=== PATIENT | male | born 1960 | race African-American/Black ===

== ENCOUNTER 2016-05-16 11:37 | Inpatient (IN) | payer BC ==
[2016-05-03 16:44] LABS: WBC (NOT ORDERED) (RFLEX) 0 (0-5)
[2016-05-03 16:57] LABS: BASOPHILS 0.3 %; BASOPHILS ABSOLUTE 0.02 10/3/uL (0.0-0.16); EOSINOPHILS 1.3 %; EOSINOPHILS ABSOLUTE 0.08 10/3/uL (0.0-0.53); HEMATOCRIT 40.6 % (40.0-51.0); HEMOGLOBIN 13.9 g/dL (13.6-17.8); IMMATURE GRANULOCYTES 0.2 %; IMMATURE GRANULOCYTES ABSOLUTE 0.01 10/3/uL (0.0-0.11); LYMPHOCYTES 29.8 %; LYMPHOCYTES ABSOLUTE 1.83 10/3/uL (0.67-4.30); MEAN CORPUS HGB CONC 34.2 g/dL (32.0-36.0); MEAN CORPUSCULAR HEMOGLOB 30.5 pg (26.0-34.0); MEAN PLATELET VOLUME 10.8 fL (9.2-13.0); MONOCYTES 9.1 %; MONOCYTES ABSOLUTE 0.56 10/3/uL (0.21-1.20); NEUTROPHILS 59.3 %; NEUTROPHILS ABSOLUTE 3.64 10/3/uL (2.02-8.40); PLATELET COUNT 217 10/3/uL (150-400); RBC DISTRIBUTION WIDTH 14.3 % (12.0-16.0); RED CELL COUNT 4.56 10/6/uL (4.7-6.1); WHITE BLOOD CELLS 6.1 10/3/uL (4.5-10.5)
[2016-05-03 16:58] LABS: MANUAL DIFF NO %
[2016-05-03 17:05] LABS: INTERNATIONAL NORMAL RATI 1.1 UNITS (-)
[2016-05-03 17:07] LABS: A/G RATIO 0.7 (0.7-1.9); ALBUMIN 3.7 G/DL (3.5-5.0); ALKALINE PHOSPHATASE 114 U/L (45-117); BUN (BLOOD UREA NITROGEN) 20 MG/DL (6-23); CALCIUM, SERUM 9.4 MG/DL (8.5-10.4); CHLORIDE, SERUM 100 MMOL/L (96-112); CO2 (CARBON DIOXIDE) 28 MMOL/L (24-34); GFR AFRICAN AMERICAN 78 ML/MIN (>=60); GFR NON AFRICAN AMERICAN 68 ML/MIN (>=60); GLOBULIN 5.3 G/DL (2.5-4.1); GLUCOSE, SERUM 143 MG/DL (60-99); POTASSIUM, SERUM 3.6 MMOL/L (3.5-5.3); SGOT(AST) 91 U/L (5-40); SGPT(ALT) 60 U/L (5-65); SODIUM, SERUM 139 MMOL/L (135-148); TOTAL BILIRUBIN 0.8 MG/DL (0-1.2)
[2016-05-03 18:06] LABS: ASCORBIC ACID (UR NOT ORDER) NEG (NEG); BILIRUBIN, URINE SMALL (NEG); KETONE, URINE TRACE MG/DL (NEG); LEUKOCYTE ESTERASE(NOT OR NEG (NEG)
--- NOTE | ~2016-05-16 | OP ---
Record Of Operation [facility] [address] [place]. [address] NAME: FRESH,NONE : 60 STATUS : ADM IN PAT#: [id number] AGE: 55 ADM/REG DATE : 05/16/16 MR#: [id number] REPORT SERV DATE: 05/17/16 DICTATED BY: CHEMA SWAN DATE: 05/16/16 REPORT STATUS : Draft TRANSCRIBED BY: MODEdi DATE: 05/16/16 DATE OF PROCEDURE: 05/16/2016 PREOPERATIVE DIAGNOSIS: Severe right knee degenerative joint disease with severe subchondral cyst formation and bone damage. POSTOPERATIVE DIAGNOSIS: Severe right knee degenerative joint disease with severe subchondral cyst formation and bone damage. OPERATION: Right posterior stabilized total knee replacement, cemented with tibial stem augmentation. SIDE: Right. SIZE: See chart. ANESTHESIA: See chart. ESTIMATED BLOOD LOSS: Trace. TOURNIQUET TIME: Approximately 1 hour and 10 minutes. COMPLICATIONS: None. SPECIMENS: Articular surfaces. PROCEDURE: The patient was appropriately identified and marked. The operative side agreed with the consent form and it was checked by all members of the surgical team. The patient was taken to the operating room and anesthesia was induced per the anesthesiologist. The patient was carefully transferred to the operating table without incident. The patient received appropriate prophylactic antibiotics and a Yanez catheter was placed in the standard sterile technique. The patient was then carefully positioned, padded, prepped and draped in the normal sterile fashion. The operative leg had been appropriately identified and checked by all members of the operating team against the consent form and found to be the correct limb. The patient's lower extremity was then exsanguinated with an Pranay wrap and a tourniquet was inflated to 350 mm/Hg. Sharp dissection was carried out through a straight midline longitudinal incision and electrocautery through the fat. Sharp quad splitting approach was carried out between about the medial 10 percent of the tendon and the lateral 90 percent of the tendon and down around the medial aspect of the patella and then 1 cm medial to the tibial tubercle. The patella was carefully everted and the posterior fat pad was excised and gentle MCL elevation was carried out off the proximal medial tibia subperiosteally. IM guide was placed in the distal femur after using the appropriate drill. The distal femoral cutting guide was held with 2 pins and the distal cut made. Meniscal fragments and the ACL and the PCL were excised with electrocautery, carefully staying anterior to the posterior fat pad. The proximal tibial alignment guide Record Of Operation [facility] [address] [place]. [address] NAME: FRESH,NONE : 60 STATUS : ADM IN PAT#: [id number] AGE: 55 ADM/REG DATE : 05/16/16 MR#: [id number] REPORT SERV DATE: 05/17/16 DICTATED BY: CHEMA SWAN DATE: 05/16/16 REPORT STATUS : Draft TRANSCRIBED BY: STANLEY DATE: 05/16/16 was set appropriately and the proximal tibial cut made. Spacer block verified full extension with excellent mediolateral balance. Sizing guide was used to place 2 drill holes in the distal femur and the four-in-one cutting block was then placed, impacted and checked to be sure it would not notch with an vanessa wing and it was held with 2 pins. The anterior cut, posterior cut, anterior chamfer and posterior chamfer cuts were made. The pins were removed and the block was removed. A posterior release was carried out with a curved 3/4 inch osteotome staying right on the bone posteriorly. The box-cut guide was then placed, impacted and held with 2 pins and a reciprocating saw was used to cut out the box. With the trial components in place, there was excellent medial/lateral balance. The patella was then measured with a caliper, cut first with an oscillating saw and then reamed with a patella reamer. With the trial patella in place, there was excellent patellar tracking. Rotation was marked on the tibia and the tibia prepared with a drill and stamp chisel. All surfaces were then copiously irrigated with pulsatile lavage, carefully dried and then vacuum-mixed cement was pressurized with a cement gun in a doughy phase. The tibial component was placed, impacted and excess cement was removed. The cement was then pressurized in the femur and placed on the posterior runners of the femoral component, which was placed, impacted and excess cement removed and the knee was brought out into extension on a trial spacer. The cement was then pressurized in the patella. Patellar component was then placed, clamped and excess cement was removed. Once all cement was hardened, the knee was taken through range of motion. Further extruded cement was removed with a small osteotome. Then based on the trial inserts, we decided on the actual insert, which was placed in the standard fashion and held with a locking mechanism. The knee was then copiously irrigated and then closed in a layered fashion over a medium Hemovac drain superolaterally with interrupted #1 in the deep fascia, 2-0 subcutaneous and manan in the skin. The wounds were dressed sterilely and the tourniquet was deflated. The patient was then awakened and taken to the postanesthesia care unit without incident. All counts were correct at the end of the case. ADDENDUM: His bone loss was so severe that I opted for a long stem augmentation on the tibia, so everything is as described above with the exception of that I reamed his the tibia up to 20 and used a 20 x 150 mm stem augmentation on the tibia because of the severe metaphyseal loss, which we filled with additional cement. WTB/MODL Gaurav Swan M.D. / [id number] CC: Gaurav Swan M.D.
[~2016-05-16 11:37] MED LIST: ALEVE220 MG PO; CLEOCIN300 MG PO; NORV10 PO
[2016-05-17 06:06] LABS: HEMOGLOBIN 11.4 g/dL (13.6-17.8)
[2016-05-17 06:13] LABS: INTERNATIONAL NORMAL RATI 1.2 UNITS (-); PROTIME (NOT ORD) 15.5 SEC (12.0-14.5)
[2016-05-17 06:19] LABS: BUN (BLOOD UREA NITROGEN) 20 MG/DL (6-23); CALCIUM, SERUM 8.6 MG/DL (8.5-10.4); CHLORIDE, SERUM 101 MMOL/L (96-112); CO2 (CARBON DIOXIDE) 26 MMOL/L (24-34); CREATININE 1.19 MG/DL (0.70-1.30); GFR AFRICAN AMERICAN 79 ML/MIN (>=60); GFR NON AFRICAN AMERICAN 68 ML/MIN (>=60); POTASSIUM, SERUM 4.1 MMOL/L (3.5-5.3); SODIUM, SERUM 138 MMOL/L (135-148)
[2016-05-17 06:25] LABS: GLUCOSE, SERUM 222 MG/DL (60-99)
[2016-05-18 05:08] LABS: HEMATOCRIT 31.7 % (40.0-51.0); HEMOGLOBIN 10.5 g/dL (13.6-17.8)
[2016-05-18 05:14] LABS: INTERNATIONAL NORMAL RATI 1.3 UNITS (-); PROTIME (NOT ORD) 15.6 SEC (12.0-14.5)
[2016-05-18] MEDS ORDERED: OXYCOD PO (10:53)
[2016-05-18] MEDS ORDERED: C5 PO (10:53)
== END 2016-05-18 13:27 | disposition home or self-care (01) | DRG 470 ==
LOC: SDC/OF 11:37 → PACU 16:39 → 3JRC 18:47
PROVIDERS: Specialist
PROC: 3E0T3CZ (ICD-10-PCS; 2016-05-16)
PROC: 0SRC0J9 Replacement of Right Knee Joint with Synthetic Substitute, Cemented, Open Approach (ICD-10-PCS; principal; 2016-05-16 13:00)
DX: M17.11 Unilateral primary osteoarthritis, right knee (principal); I10 Essential (primary) hypertension; Z28.21 Immunization not carried out because of patient refusal; E66.9 Obesity, unspecified; Z68.30 Body mass index [BMI] 30.0-30.9, adult
CPT/HCPCS: 71020; 80048; 80053; 81001; 85014; 85018; 85025; 85610; 87015; 87070; 87075; 87102; 87116; 87205; 87641; 88305; 88311; 88312; 93005; 97116-GP; 97150-GP; 97161-GP; 97165-GO; A9270-GY; C1776; J0690; J1885; J2250; J2270; J2274; J2405; J2795; J3010